=== PATIENT | female | born 1990 | race Caucasian/White ===

== ENCOUNTER 2023-04-13 12:03 | Emergency (ER) | payer MEDICAID ==
[~2023-04-13] VITALS: Ht 157.5 cm; Wt 70.9 kg
[~2023-04-13 12:03] MED LIST: BUPR-122 PO; BUPR-297 PO; CARI1.5C PO; HYDR-3686 PO; NO HOME MEDS; TRAZ-251 PO
[2023-04-13 12:11] VITALS: BP 131/90; PULSE 98; TEMP 99.4; O2SAT 99
[2023-04-13 12:39] LABS: HEMOGLOBIN 12.4 g/dl (12.0-16.0); LYMPHOCYTES # (AUTO) 1.2 X10'3 (1.1-4.8); MEAN CORPUSCULAR VOLUME 78.5 FL (78-98); NEUTROPHILS % (AUTO) 74.6 % (42-75); WHITE BLOOD COUNT 9.6 X10'3 (4.5-11.0)
[2023-04-13 12:41] LABS: BASOPHILS % (AUTO) 0.4 % (0-1); EOSINOPHILS % (AUTO) 0.5 % (0-6); HEMATOCRIT 38.6 % (35.0-45.0); LYMPHOCYTES % (AUTO) 12.6 % (21-51); MEAN CORPUSCULAR HEMOGLOBIN 25.2 PG (27.0-31.0); MEAN CORPUSCULAR HGB CONC 32.1 g/dL (33.0-36.5); MEAN PLATELET VOLUME 7.8 FL (7.4-10.4); MONOCYTES # (AUTO) 1.1 X10'3 (0-0.9); MONOCYTES % (AUTO) 11.9 % (2-12); NEUTROPHILS # (AUTO) 7.1 X10'3 (1.8-7.7); PLATELET COUNT 590 X10'3 (140-440); RED BLOOD COUNT 4.92 X10'6 (4.20-5.60)
[2023-04-13 12:59] LABS: ALANINE AMINOTRANSFERASE 19 U/L (12-78); ALBUMIN 3.9 G/DL (3.4-5.0); ALBUMIN/GLOBULIN RATIO 1.1 (1.1-1.5); ALKALINE PHOSPHATASE 64 IU/L (46-116); ASPARTATE AMINO TRANSFERASE 8 U/L (10-37); BILIRUBIN,TOTAL 0.4 MG/DL (0.1-1.0); BLOOD UREA NITROGEN 4 MG/DL (7-18); BUN/CREATININE RATIO 3.8 (10.0-20.0); CALCIUM 9.3 MG/DL (8.5-10.1); CREATININE 1.06 MG/DL (0.40-0.90); ETHANOL < 10 MG/DL (<10); GLUCOSE 95 MG/DL (70-104); SALICYLATE 0.7 MG/DL (4.0-20.0); THYROID STIMULATING HORMONE 1.21 ulU/ml (0.34-4.50); TOTAL CARBON DIOXIDE 21.1 MMOL/L (24-32); TOTAL PROTEIN 7.4 G/DL (6.4-8.2); eCRCL 61 ML/MIN; eGFR 60 ML/MIN
[2023-04-13 13:11] LABS: ANION GAP 12 (8-16); CHLORIDE 104 MMOL/L (99-107); POTASSIUM 4.2 MMOL/L (3.5-5.1); SODIUM 137 MMOL/L (135-145)
[2023-04-13 13:32] LABS: ACETAMINOPHEN < 2.0 UG/ML (10-30)
[2023-04-13 13:45] VITALS: RESP 16
--- NOTE | 2023-04-13 13:45 | NUR ---
Patient tearful. States she has a visitation tomorrow with her son who she lost. Patient states the [employer] advised this patient that is she misses another visitation she will loose her son for good. Patient states she can't miss and won't stay. Patient is tearful and says her son is the only reason left for her to live. Patient lost her unexpectedly in July during a simple surgery. Patient became extremely suicidal at that time. Continue to monitor.
[2023-04-13 14:06] LABS: URINE HCG NEGATIVE (NEG)
[2023-04-13 14:07] LABS: BILIRUBIN,URINE NEGATIVE (Neg); CLARITY,URINE SLIGHTLY CLOUDY (Clear); COLOR,URINE YELLOW (Yellow); GLUCOSE, URINE NEGATIVE (Neg); KETONES,URINE NEGATIVE (Neg); LEUKOCYTE ESTERASE ,URINE NEGATIVE (Neg); NITRITES, URINE NEGATIVE (Neg); OCCULT BLOOD,URINE NEGATIVE (Neg); PH,URINE 5.5 (4.8-8.0); PROTEIN,URINE NEGATIVE (Neg); UROBILINOGEN,URINE 0.2 E.U/dL (0.2-1.0)
[2023-04-13 14:17] LABS: UA COLLECTION TYPE CLN CATCH MIDSTREAM; URINE AMPHETAMINE SCREEN NEGATIVE (Neg); URINE BARBITUATE SCREEN NEGATIVE (Neg); URINE BENZODIAZEPINES SCREEN NEGATIVE (Neg); URINE CANNABINOID SCREEN POSITIVE (Neg); URINE COCAINE SCREEN NEGATIVE (Neg); URINE METHADONE SCREEN NEGATIVE (Neg); URINE OPIATE SCREEN NEGATIVE (Neg); URINE PHENCYCLIDINE SCREEN NEGATIVE (Neg)
[2023-04-13 14:18] LABS: MUCUS STRANDS MANY /LPF (Neg); SQUAMOUS EPITHELIAL CELL,UR MANY /LPF (FEW)
[2023-04-13 14:20] LABS: BACTERIA,URINE 1+ /HPF (Neg); RBC,URINE 0-2 /HPF (0-2); TRANSITIONAL EPI CELLS,URINE FEW /HPF; WBC,URINE 0-4 /HPF (0-4)
--- NOTE | 2023-04-13 14:25 | NUR ---
[facility] packet faxed.
[2023-04-13] MEDS ORDERED: SERT50TA PO (14:37)
[2023-04-13] MEDS ORDERED: BUPR-317 PO (14:37)
[2023-04-13] MEDS ORDERED: BREX2TAB PO (14:37)
--- NOTE | 2023-04-13 15:30 | NUR ---
Patient sitting up in bed. Patient is anxious but does not want any medication. Continue to monitor.
[2023-04-13] MEDS ORDERED: LORazepam 1 MG tablet PO ONE (17:05)
[2023-04-13] MEDS ORDERED: LORazepam 1 MG tablet PO PRN (17:05)
--- NOTE | 2023-04-13 17:05 | NUR ---
ANNETTE, Rasheeda, evaluating patient. No distress observed. Continue to monitor.
--- NOTE | 2023-04-13 18:17 | NUR ---
Patient with dinner tray at bedside. Patient has not eaten anything on her tray. Continue to monitor.
--- NOTE | 2023-04-13 18:35 | NUR ---
Patient eloped. RN and Tech watching patient go back to the [facility] soon after again. Patient opened the door wid and the door shut but patient snuck out through the [facility] hallway. RN called Security on radio immediately. Security observed patient running down [address] and then headed for an apartment complex. RN to call [facility].
== END 2023-04-13 18:35 | disposition left against medical advice (07) ==
LOC: ER 12:03
DX: F33.1 Major depressive disorder, recurrent, moderate (principal); Z20.822 Contact with and (suspected) exposure to COVID-19; R45.851 Suicidal ideations; J45.909 Unspecified asthma, uncomplicated
CPT/HCPCS: 36415; 80053; 80305; 80320; 80329; 81001; 81025; 84443; 85025; 87811; 99285